=== PATIENT | female | born 1995 | race African-American/Black ===

== ENCOUNTER 2017-09-09 22:17 | Emergency (ER) | payer OTHER ==
[~2017-09-09] VITALS: Ht 170.2 cm; Wt 65.0 kg
[2017-09-09 22:19] VITALS: BP 136/77; PULSE 79; RESP 16; TEMP 98.4; O2SAT 97
[2017-09-10] MEDS ORDERED: CYCLOBENZAPRINE HCL 10 MG TAB PO ONE (00:45)
[2017-09-10] MEDS ORDERED: IBUPROFEN 600 MG TAB PO ONE (00:45)
[2017-09-10] MEDS ORDERED: DICL75TA PO (00:50)
[2017-09-10] MEDS ORDERED: CYCL1TAB29 PO (00:50)
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
== END 2017-09-10 01:09 | disposition home or self-care (01) ==
LOC: NEPD 22:17
DX: Z04.1 Encounter for examination and observation following transport accident (principal); M54.5 Low back pain; V43.62XA Car passenger injured in collision with other type car in traffic accident, initial encounter; Y92.414 Local residential or business street as the place of occurrence of the external cause
CPT/HCPCS: 99284